=== PATIENT | female | born 1995 | race African-American/Black ===

== ENCOUNTER 2025-01-30 18:14 | Emergency (ER) | payer OTHER ==
[~2025-01-30] VITALS: Ht 167.6 cm; Wt 59.1 kg
[2025-01-30 19:00] LABS: PLATELET COUNT (AUTO) 320 K/uL (150-450); RED BLOOD CELL COUNT(AUTO) 4.82 MIL/uL (4.00-5.20); RED CELL DISTRIBUTION WIDTH 13.6 % (11.5-14.5); WHITE BLOOD COUNT (AUTO) 8.3 K/uL (4.5-11.0)
[2025-01-30 19:07] LABS: CALCIUM, TOTAL 8.9 mg/dL (8.8-10.5); CREATININE 0.71 mg/dL (0.60-1.30); GLOMERULAR FILTR. RATE CALC > 60 mL/min (>60); GLUCOSE,RANDOM 99 mg/dL (70-110); SODIUM SERUM 137 mmol/L (136-145); UREA NITROGEN, BLOOD 7 mg/dL (7-18)
[2025-01-30 19:33] LABS: ASPARTATE AMINOTRANSFERASE 35.0 U/L (15-37); HCG,QUANTITATIVE 7860.0 mIU/mL (0-6); TOTAL PROTEIN, SERUM 7.7 g/dL (6.4-8.2)
[2025-01-31] MEDS: ACETAMINOPHEN 325 MG TABLET PO ONE (01:35)
[2025-01-31] MEDS: ONDANSETRON 4 MG TABLET PO ONE (01:35)
[2025-01-31 01:49] VITALS: BP 119/65; PULSE 71; RESP 18; TEMP 97.3; O2SAT 100
== END 2025-01-31 02:26 | disposition home or self-care (01) ==
LOC: EMS 18:14
DX: O21.9 Vomiting of pregnancy, unspecified (principal); R10.13 Epigastric pain; F10.129 Alcohol abuse with intoxication, unspecified; Z3A.01 Less than 8 weeks gestation of pregnancy; Z88.5 Allergy status to narcotic agent; Y90.9 Presence of alcohol in blood, level not specified
CPT/HCPCS: 99285; 76700; 76801; 80048; 80076; 83690; 84702; 85025; 86901; 36415; G0480; Q0162